=== PATIENT | female | born 2000 | race Two or more races ===

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

== ENCOUNTER 2021-08-17 18:32 | Outpatient (CLI) | payer OTHER | END 2021-08-18 16:22 | disposition home or self-care (01) | LOC: OBS/DEL 18:32 | PROVIDERS: ATTEND Obstetrics & Gynecology | DX: O26.893 Other specified pregnancy related conditions, third trimester (principal); R10.2 Pelvic and perineal pain; Z3A.38 38 weeks gestation of pregnancy ==

== ENCOUNTER 2021-08-24 07:25 | Inpatient (IN) | payer OTHER ==
[~2021-08-24] VITALS: Ht 152.4 cm; Wt 82.1 kg
== END 2021-08-26 12:30 | disposition home or self-care (01) | DRG 807 ==
LOC: LDR 07:25 → OB/GYN 08-25 16:33
PROVIDERS: ADMIT Obstetrics & Gynecology; ATTEND Obstetrics & Gynecology
PROC: 10E0XZZ Delivery of Products of Conception, External Approach (ICD-10-PCS; principal; 2021-08-24)
PROC: 4A1HXCZ Monitoring of Products of Conception, Cardiac Rate, External Approach (ICD-10-PCS; 2021-08-24)
DX: O80 Encounter for full-term uncomplicated delivery (principal); Z37.0 Single live birth; Z3A.39 39 weeks gestation of pregnancy

== ENCOUNTER 2025-08-18 20:37 | Inpatient (IN) | payer OTHER ==
[~2025-08-18] VITALS: Ht 149.9 cm; Wt 78.5 kg
[2025-08-18 20:50] VITALS: BP 118/71
[2025-08-18] MEDS ORDERED: RINGERS SOLUTION,LACTATED 1,000 ML IV SCH (21:30)
[2025-08-18 23:23] LABS: URINE APPEARANCE Clear; URINE BILIRRUBIN Negative (NEGATIVE); URINE BLOOD Negative; URINE COLOR Yellow; URINE GLUCOSE Negative (NEGATIVE); URINE KETONE Negative (NEGATIVE); URINE LEUKOCYTE Negative; URINE NITRATE Negative; URINE PROTEIN Negative (NEGATIVE); URINE UROBILINOGEN 0.2 E.U./dl
[2025-08-18 23:27] LABS: BASO % 0.4 % (0.1-1.2); EOS # 0.27 (0.04-0.54); EOS % 2.8 % (0.7-7.0); LYMPH # 2.32 (1.18-3.74); LYMPH % 23.8 % (19.3-53.1); MEAN PLATELET VOLUME 12.20 fl (9.4-12.4); MONO # 0.49 (0.24-0.82); MONO % 5.0 % (4.7-12.5); NEUT # 6.51 (1.56-6.13); NEUT % 66.9 % (34.0-71.1); RED CELL DISTRIBUTION WIDTH 13.2 % (11.6-14.4)
[2025-08-18 23:28] LABS: URINE BACTERIA 363.7 uL (0.0-1933); URINE EPITHELIAL CELLS 41.6 uL (0.0-38.8); URINE WBC 7.3 uL (0.0-23.2)
[2025-08-18 23:33] VITALS: BP 104/68
[2025-08-18 23:37] LABS: URINE CAST 0.00 uL (0.0-1.40); URINE RBC 1.9 uL (0.0-20.8)
[2025-08-18 23:41] LABS: INR < 0.93
[2025-08-18 23:50] LABS: ALT/SGPT 32.0 U/L (12-78); AST/SGOT 23.0 U/L (15-37); BILIRUBIN TOTAL 0.23 mg/dL (0.3-1.2); BUN CREA RATIO 16.0 (7.0-25.0); CREATININE SERUM 0.45 mg/dL (0.55-1.02); GFR 169.76; GLOBULINA 4.0 G/DL (2.4-3.5); GLUCOSE FASTING 129.0 mg/dL (65-100); OSMOLALITY SERUM 277.0 MOSM/KG (275-295)
[2025-08-19] VITALS (7 sets, daily range): BP systolic 95–118; BP diastolic 64–74
[2025-08-19] MEDS ORDERED: BETAMETHASONE ACETATE,SOD PHOS 30 MG/5 ML ML ONE (16:38)
[2025-08-19] MEDS ORDERED: BETAMETHASONE ACETATE,SOD PHOS 30 MG/5 ML ML IM ONE (17:15)
[2025-08-20 04:21] VITALS: BP 101/59
[2025-08-20 07:30] VITALS: BP 116/68
[2025-08-20 11:53] VITALS: BP 109/70
[2025-08-20 15:15] VITALS: BP 110/69
[2025-08-20] MEDS ORDERED: BETAMETHASONE ACETATE,SOD PHOS 30 MG/5 ML ML IM NR (17:15)
[2025-08-20 19:13] VITALS: BP 115/72; O2SAT 99
[2025-08-20 23:12] VITALS: BP 101/57
[2025-08-21 03:43] VITALS: BP 103/61
[2025-08-21 07:30] VITALS: BP 113/69
[2025-08-21 12:00] VITALS: BP 114/72
[2025-08-21 15:25] VITALS: BP 110/73
[2025-08-21 19:40] VITALS: BP 107/69
[2025-08-21 23:04] VITALS: BP 107/66
[2025-08-22 03:05] VITALS: BP 109/69
[2025-08-22 07:10] VITALS: BP 98/60
[2025-08-22 12:00] VITALS: BP 112/70
[2025-08-22] MEDS ORDERED: MORPHINE SULFATE 4 MG/ML VIAL IV PRN (14:45)
[2025-08-22 16:03] VITALS: BP 108/67
[2025-08-22 19:14] VITALS: BP 110/71
[2025-08-22 23:08] VITALS: BP 128/77
[2025-08-23 03:33] VITALS: BP 112/71
[2025-08-23 07:05] VITALS: BP 106/69
[2025-08-23 11:05] VITALS: BP 104/69
[2025-08-23 15:04] VITALS: BP 102/68
[2025-08-23 19:03] VITALS: BP 109/73
[2025-08-23 23:07] VITALS: BP 99/64
[2025-08-24 03:17] VITALS: BP 105/71
[2025-08-24 06:59] VITALS: BP 100/63; O2SAT 97
[2025-08-24 12:21] VITALS: BP 135/86
[2025-08-24 15:10] VITALS: BP 103/64
[2025-08-24 19:30] VITALS: BP 109/70
[2025-08-24 21:01] VITALS: BP 121/80
[2025-08-25] VITALS: BP 97/60
[2025-08-25 08:00] VITALS: BP 119/75
[2025-08-25 15:51] VITALS: BP 107/68
[2025-08-26] VITALS: BP 128/86
[2025-08-26 08:11] VITALS: BP 97/70
[2025-08-26 18:04] VITALS: BP 116/74
[2025-08-26] MEDS ORDERED: TERCONAZOLE 45 GM TUBE VAG SCH (21:00)
[2025-08-27 02:12] VITALS: BP 118/80
[2025-08-27 08:59] VITALS: BP 121/78
[2025-08-27 13:42] VITALS: BP 124/77
[2025-08-27 17:07] VITALS: BP 105/66
[2025-08-28 01:23] VITALS: BP 124/80
[2025-08-28 09:05] VITALS: BP 110/74
[2025-08-28 19:11] VITALS: BP 124/78
[2025-08-29] VITALS: BP 103/67
[2025-08-29 08:14] VITALS: BP 114/75
[2025-08-29 16:38] VITALS: BP 114/71
[2025-08-30] VITALS: BP 125/82
[2025-08-30 08:00] VITALS: BP 110/72
== END 2025-08-30 12:10 | disposition home or self-care (01) | DRG 833 ==
LOC: OBS/DEL 20:37 → LDR 20:37 → OBS/DEL 08-19 00:06 → LDR 08-19 16:44 → OB/GYN 08-24 20:33
PROVIDERS: ADMIT Obstetrics & Gynecology; ATTEND Obstetrics & Gynecology
PROC: 4A1HXCZ Monitoring of Products of Conception, Cardiac Rate, External Approach (ICD-10-PCS; principal; 2025-08-19)
PROC: BY4FZZZ Ultrasonography of Third Trimester, Single Fetus (ICD-10-PCS; 2025-08-19)
PROC: BY4FZZZ Ultrasonography of Third Trimester, Single Fetus (ICD-10-PCS; 2025-08-24)
PROC: B54DZZZ Ultrasonography of Bilateral Lower Extremity Veins (ICD-10-PCS; 2025-08-27)
DX: O47.03 False labor before 37 completed weeks of gestation, third trimester (principal); O36.8130 Decreased fetal movements, third trimester, not applicable or unspecified; O26.843 Uterine size-date discrepancy, third trimester; O36.8310 Maternal care for abnormalities of the fetal heart rate or rhythm, first trimester, not applicable or unspecified; Z3A.30 30 weeks gestation of pregnancy